=== PATIENT | male | born 1975 | race Caucasian/White ===

== ENCOUNTER 2023-02-10 11:47 | Emergency (ER) | payer BC, OTHER ==
[2023-02-10 12:11] LABS: BILIRUBIN,URINE NEGATIVE (NEGATIVE); GLUCOSE, URINE (UA) NEGATIVE (NEGATIVE); KETONES,URINE (UA) NEGATIVE (NEGATIVE); LEUKOCYTE ESTERASE, URINE NEGATIVE (NEGATIVE); NITRITE,URINE NEGATIVE (NEGATIVE); OCCULT BLOOD,URINE MODERATE (NEGATIVE); PROTEIN,URINE NEGATIVE (NEGATIVE); UROBILINOGEN,URINE 0.2 (NORMAL) E.U./dL (NORMAL)
[2023-02-10 12:12] LABS: CLARITY,URINE CLEAR (CLEAR)
[2023-02-10 12:18] LABS: BACTERIA,URINE Rare /HPF (None Seen); SQUAMOUS EPITHELIAL CELL,UR NONE SEEN (<= Few); WBC,URINE 0-3 /HPF (0-3)
--- NOTE | 2023-02-10 12:32 | CT Report ---
PROCEDURE: ABDOMEN/PELVIS WO INDICATIONS: R flank pain, h/o renal stone TECHNIQUE: Noncontrast 5 mm thick sections acquired from the diaphragms to the symphysis. 5 mm coronal and sagi ttal reformats were then performed. For radiation dose reduction, the following was used: automated exposure control, adjustment of mA and/or kV according to patient size. COMPARISON: None. FINDINGS: Image quality: Excellent. Lung bases and heart: Unremarkable. Liver: Unremarkable. Gallbladder and biliary tree: Unremarkable. No biliary dilation. Spleen: Unremarkable. Pancreas: Unremarkable. Adrenals: Unremarkable. Kidneys and ureters: Obstructing 5.5 mm stone in the distal right ureter (887 HU), resulting in moder ate upstream hydroureter. Homogeneous lesion with indeterminate attenuation in the right pararenal sp fredy measuring 4.0 x 3.8 cm (3/47). Punctate, nonobstructing left-sided stone. Bowel and peritoneum: No bowel distension. No pathologic free fluid. Diverticulosis without evidence of diverticulitis. Central mesenteric fat stranding without adenopathy; findings typically indicate a benign process in the absence of enlarged lymph nodes. Lymph nodes: No central or retroperitoneal adenopathy. Vessels: Unremarkable. PELVIS Reproductive organs: Unremarkable. Bladder: Unremarkable. Lymph nodes: Unremarkable. Bones: No aggressive osseous abnormality. Other: Fat within the inguinal canals. IMPRESSION: Obstructing 5.5 mm stone in the distal right ureter (887 HU), resulting in moderate upstream hydroure ter. Homogeneous lesion in the right pararenal space measuring 4.0 x 3.8 cm, possibly an exophytic renal c yst. Consider outpatient ultrasound for complete characterization. Reviewed by: Jose Antonio Astudillo on 02/10/2023 12:31 PM PDT Approved by: Jose Antonio Astudillo on 02/10/2023 12:31 PM PDT Station ID: [id number]
[2023-02-10 12:33] LABS: BASOPHILS % (AUTO) 0.4 %; EOSINOPHILS # (AUTO) 0.1 10^3/uL (0.0-0.7); EOSINOPHILS % (AUTO) 1.2 %; HCT - HEMATOCRIT 43.3 % (42.0-52.0); HGB - HEMOGLOBIN 14.2 g/dL (14.0-18.0); LYMPHOCYTES # (AUTO) 1.5 10^3/uL (1.5-3.5); LYMPHOCYTES % (AUTO) 22.3 %; MEAN CORPUSCULAR HEMOGLOBIN 28.2 pg (27.0-31.0); MEAN CORPUSCULAR HGB CONC 32.8 g/dL (32.0-36.0); MEAN CORPUSCULAR VOLUME 86.1 fL (80.0-94.0); MEAN PLATELET VOLUME 9.2 fL (7.4-11.4); MONOCYTES # (AUTO) 0.5 10^3/uL (0.0-1.0); NEUTROPHILS # (AUTO) 4.6 10^3/uL (1.5-6.6); NEUTROPHILS % (AUTO) 68.7 %; PLT - PLATELET COUNT 202 10^3/uL (130-450); RED BLOOD COUNT 5.03 10^6/uL (4.70-6.10); RED CELL DISTRIBUTION WIDTH 12.4 % (12.0-15.0); WHITE BLOOD COUNT 6.8 x10^3/uL (4.8-10.8)
[2023-02-10 12:46] LABS: ALBUMIN 4.2 g/dL (3.2-5.5); ALBUMIN/GLOBULIN RATIO 1.5 (1.0-2.2); BILIRUBIN,TOTAL 1.4 mg/dL (0.2-1.0); CALCIUM 9.4 mg/dL (8.5-10.3); CREATININE 1.9 mg/dL (0.6-1.2); POTASSIUM 4.3 mmol/L (3.5-5.0)
[2023-02-10] MEDS ORDERED: TAMSULOSIN 0.4 MG CAPSULE PO STA (13:01)
[2023-02-10] MEDS ORDERED: KETOROLAC 30 MG/ML VIAL IVP STA (13:03)
[2023-02-10] MEDS ORDERED: SODIUM CHLORIDE 0.9% 1,000 ML IV STA (13:03)
--- NOTE | 2023-02-10 13:10 | ED Physician Documentation ---
History of Present Illness - Stated complaint Stated Complaint: KIDNEY STONE - Chief complaint Chief Complaint: Abd Pain - Additonal information Additional information: 47-year-old male presents to the emergency department for evaluation of 5 days of right flank and low back pain. Has remote history of renal colic about 7 years ago. Has never been seen by urologist. Does not have primary care. He endorses some subjective fevers but no dysuria or frequency. Denies history of hypertension or diabetes Review of Systems Constitutional: reports: Fever Throat: reports: Reviewed and negative Cardiac: reports: Reviewed and negative Respiratory: reports: Reviewed and negative GI: reports: Abdominal Pain : reports: Reviewed and negative Skin: reports: Reviewed and negative PD PAST MEDICAL HISTORY - Present Medications Home Medications: Ambulatory Orders Medication Instructions Recorded Confirmed Ibuprofen 400 mg PO Q6HR PRN 02/10/23 02/10/23 Tamsulosin HCl [Flomax] 0.4 mg PO DAILY #30 cap 02/10/23 - Allergies Allergies/Adverse Reactions: Allergies Allergy/AdvReac Type Severity Reaction Status Date / Time codeine AdvReac Nausea Verified 02/10/23 13:22 PD ED PE NORMAL - General General: Alert and oriented X 3, No acute distress - HEENT HEENT: PERRL - Neck Neck: Supple, no meningeal sign, No adenopathy - Cardiac Cardiac: RRR, No murmur - Respiratory Respiratory: No respiratory distress, Clear bilaterally - Abdomen Abdomen: Normal bowel sounds, Soft. No: Non tender (Mild tenderness of the right flank and lower quadrant. No guarding or rebound. No CVA tenderness) - Derm Derm: Warm and dry - Extremities Extremities: No deformity - Neuro Neuro: Alert and oriented X 3 Eye Opening: Spontaneous Motor: Obeys Commands Verbal: Oriented GCS Score: 15 Results - Vitals Vitals: Vital Signs - 24 hr 02/10/23 02/10/23 11:52 13:31 Temperature 36.0 C L Heart Rate 73 67 Respiratory 18 16 Rate Blood Pressure 137/83 H 134/90 H O2 Saturation 99 99 Oxygen O2 Source Room air - Labs Labs: Laboratory Tests 02/10/23 02/10/23 02/10/23 12:00 12:28 12:28 WBC 6.8 RBC 5.03 Hgb 14.2 Hct 43.3 MCV 86.1 MCH 28.2 MCHC 32.8 RDW 12.4 Plt Count 202 MPV 9.2 Neut # (Auto) 4.6 Lymph # (Auto) 1.5 Bee # (Auto) 0.5 Eos # (Auto) 0.1 Baso # (Auto) 0.0 Absolute Nucleated RBC 0.00 Nucleated RBC % 0.0 Sodium 138 Potassium 4.3 Chloride 107 Carbon Dioxide 26 Anion Gap 5.0 L BUN 24 H Creatinine 1.9 H Estimated GFR (MDRD) 38 L Glucose 104 H Calcium 9.4 Total Bilirubin 1.4 H AST 19 ALT 22 Alkaline Phosphatase 63 Total Protein 7.0 Albumin 4.2 Globulin 2.8 Albumin/Globulin Ratio 1.5 Lipase 38 Urine Color YELLOW Urine Clarity CLEAR Urine pH 6.0 Ur Specific [place] 1.010 Urine Protein NEGATIVE Urine Glucose (UA) NEGATIVE Urine Ketones NEGATIVE Urine Occult Blood MODERATE H Urine Nitrite NEGATIVE Urine Bilirubin NEGATIVE Urine Urobilinogen 0.2 (NORMAL) Ur Leukocyte Esterase NEGATIVE Urine RBC 6-10 H Urine WBC 0-3 Ur Squamous Epith Cells NONE SEEN Urine Bacteria Rare Ur Microscopic Review INDICATED Urine Culture Comments NOT INDICATED - Rads (name of study) CT abd Relevant Findings:: Final report received (Obstructing 5.5 mm stone in the distal right ureter resulting in moderate upstream hydroureter. Homogenous lesion in the right pararenal space measuring 4 by by 3.8 cm possibly exophytic renal cyst. Consider outpatient ultrasound for complete characterization) PD Medical Decision Making - ED course Complexity details: reviewed results, re-evaluated patient, considered differential, d/w patient ED course: 47-year male presents emergency department for evaluation of 5 days right low back and right flank pain. No dysuria urgency or frequency. No hematuria. He has a remote history of renal colic treated 7 years ago. He never formally saw urology. Here in the emergency department his urinalysis is without findings of infection though blood is noted per my interpretation. CBC showed no worrisome leukocytosis or anemia. His electrolytes however do show some mild kidney injury. His BUN is 24 and creatinine of 1.9. This is essentially doubled from the 2014 labs that we have most recently for evaluation. A subsequent CT of the abdomen does show an obstructing 5.5 mm stone in the distal right ureter with moderate upstream hydroureter. Also an associated lesion in the pararenal space that may be an exophytic renal cyst. I discussed the CT imaging findings with the patient. He will ultimately require referral to urology. In order to assist with this I have contacted the walk-in clinic where he was seen earlier in the day and requested that they make a referral to urology. The provider noted that he is not associated with a primary provider and as such an appointment has been made for him to be seen next Monday to establish care. In the short-term the patient will be started on Flomax to aid in passage of the stone. He is advised that he needs to have an ultrasound completed for further characterization of this right renal lesion. We discussed the findings of acute kidney injury on CT labs today patient is advised hydration and to have labs repeated in 1 week's time to ensure stability. The usual emergent return precautions were discussed for worsening symptoms Departure - Departure Disposition: 01 Home, Self Care Clinical Impression: Hydroureter, Renal lesion, Acute kidney injury, Right ureteral calculus Condition: Stable Record reviewed to determine appropriate education?: Yes Prescriptions: Tamsulosin HCl [Flomax] 0.4 mg PO DAILY #30 cap Comments: Harvey you are referred to the emergency department for evaluation of pain in your right low back and abdomen. A CT scan has shown that you have a 5.5 mm stone in the distal right ureter. This is mildly obstructing and is causing some swelling of the ureter behind the stone. There was also findings of a right pararenal lesion that most likely represents a cyst. You are recommended to have an outpatient ultrasound of the right kidney for further evaluation of this. Your labs today showed some mild kidney disease. Your BUN and creatinine were elevated. We did give you a liter of IV fluids here in the emergency department. Over the weekend you are encouraged to stay well-hydrated. The color of your urine should be pale yellow. Because of this obstructing renal stone you will need to be referred to urology. I have spoken with Dr. Doan told the provider who saw you earlier in the day and you can expect a call from the walk-in clinic tomorrow. You will be scheduled an appointment next Monday with her primary provider who can make the referral for you to urology. They should also obtain repeat labs to ensure stability of your kidney function as well as order the outpatient renal ultrasound. In order to manage the kidney stone you are being started on a medication called Flomax. In theory this helps dilate the ureter allowing the stone to pass. I encourage you to stay well-hydrated while taking this medication. It can cause some slight dizziness so use cautiously when driving. Because of the mild kidney disease I would like you to avoid NSAID medications like Aleve or ibuprofen until you ensure that your kidney functions improving. Therefore I would like you to take Tylenol 500 mg 3-4 times a day for any discomfort. If any point you find that your symptoms are worsening, you develop severe pain have uncontrolled vomiting then please return immediately to the ER for second evaluation.
[2023-02-10 14:18] VITALS: BP 123/74
== END 2023-02-10 14:18 | disposition home or self-care (01) ==
LOC: ED 11:47
DX: N13.4 Hydroureter (principal); N28.9 Disorder of kidney and ureter, unspecified; N17.9 Acute kidney failure, unspecified; N20.1 Calculus of ureter
CPT/HCPCS: 36415; 74176; 80053; 81001; 83690; 85025; 96374; 99284; A9270; 81003; 87086

== ENCOUNTER 2023-03-23 19:19 | Outpatient (CLI) | payer OTHER ==
--- NOTE | 2023-03-24 16:16 | Ultrasound Report ---
PROCEDURE: Retroperitoneal INDICATIONS: RENAL CYST TECHNIQUE: Real-time scanning was performed of the retroperitoneal organs, with image documentation. COMPARISON: CT abdomen pelvis 02/10/2023. FINDINGS: Kidneys: Kidneys are normal in size. Right kidney measures 10 point cm long; left kidney measures 1 1.2 cm long. Right renal cortical thickness is 1.6 cm; left renal cortical thickness is 1.8 cm. No solid masses, hydronephrosis, or nephrolithiasis. The previously identified isodense focus in the ri t pararenal space is identified as a hypoechoic focus measuring 3.0 x 3.4 x 3.6 cm. It appears to b e separate from the kidney. There is minimal posterior acoustic enhancement. No vascularity. In addit ion, 5 mm echogenic focus is present within the left kidney corresponding to previous identified ston e. Bladder: Pre-void bladder volume is 122 mL. Post-void residual is 2 mL. Pre-void images demonstrat e no intraluminal masses or stones. On pre-void images, bilateral ureteral jets are noted with color Doppler interrogation. (Of note, ureteral jets may not be detectable in up to 25% of cases due to i nsufficient differences in specific gravity between ureteral and bladder urine). Miscellaneous: No free abdominal fluid. IMPRESSION: Hypoechoic focus corresponding to right pararenal density identified on CT. It appears to be separate from the right kidney and predominantly solid. It appears to be separate from the liver, kidney as w ell as adrenal gland. Etiology remains indeterminate and could represent malignant and nonmalignant e tiologies. Biopsy may be obtained as clinically indicated or potentially PET scan. Reviewed by: Kim Ley MD on 03/24/2023 4:15 PM PDT Approved by: Kim Ley MD on 03/24/2023 4:15 PM PDT Station ID: [id number]
== END 2023-03-23 19:20 | disposition home or self-care (01) ==
LOC: DI 19:19
PROVIDERS: ATTEND Emergency Medicine
DX: R19.09 Other intra-abdominal and pelvic swelling, mass and lump (principal); N20.0 Calculus of kidney

== ENCOUNTER 2023-04-07 07:42 | Outpatient (CLI) | payer OTHER ==
[~2023-04-07 07:42] MED LIST: GADOBUTROL 10 MMOL/10 ML VIAL ONE
[2023-04-07] MEDS ORDERED: GADOBUTROL 10 MMOL/10 ML VIAL IVP ONE (09:34)
--- NOTE | 2023-04-07 14:01 | MRI Report ---
PROCEDURE: ABDOMEN W/WO INDICATIONS: RENAL CYST CONTRAST: GADAVIST 9.5 ML TECHNIQUE: Coronal ultra fast SE, axial 2D spoiled GE in- and [id number]; axial breath-hold T2 fast SE. Dynam ic axial ultra fast GE during the administration of contrast; post-contrast coronal ultra fast GE or 2D spoiled GE with fat saturation from the hepatic dome to the iliac crests. Optional diffusion weig hted imaging and ADC may be performed. COMPARISON: CT 02/10/2023 and ultrasound 03/23/2023 FINDINGS: Image quality: Excellent. Lung bases and heart: Unremarkable. Liver: No solid or enhancing mass. Gallbladder and biliary tree: Normal gallbladder without stones or wall thickening. No biliary dilata tion. Spleen: Normal size. Pancreas: Normal. Adrenals: No adrenal nodule. Kidneys and ureters: In the right suprarenal space, separate from the kidney and adrenal gland, and t here is a homogeneous, well-circumscribed ovoid mass measuring 3.7 x 3.5 x 3.8 cm, isointense to musc le on T1 and mildly hyperintense on T2. There is no restricted diffusion, and minimal, questionably p eripheral enhancement postcontrast. Kidneys are otherwise normal without enhancing mass or hydronephr osis. Bowel and peritoneum: Stomach and visualized bowel loops are normal. No free fluid. Lymph nodes: There is subtle small bowel mesenteric congestion and several borderline ovoid mesenteri c lymph nodes, one of the largest measuring 6 mm in short axis. No retroperitoneal adenopathy or mass . Vessels: Normal caliber. No aneurysm. Bones: No aggressive osseous abnormality. Other: No significant ventral hernia. IMPRESSION: 1. 3.8 cm circumscribed, minimally enhancing right suprarenal mass in the retroperitoneum. Differenti al diagnosis includes an exophytic adrenal adenoma, pathologic lymph node, retroperitoneal duplicatio n cyst.. This remains indeterminant. Percutaneous biopsy may be helpful. 2. Borderline changes of mesenteric adenopathy, typically physiologic in the absence of other finding s, mildly concerning for the presence of lymphoma in the presence of an indeterminant retroperitoneal mass. Continued attention to this area is recommended. Reviewed by: Domi Thomas MD on 04/07/2023 1:00 PM JESSIKA Approved by: Domi Thomas MD on 04/07/2023 1:00 PM [place] Station ID: [id number]
--- NOTE | 2023-04-07 14:08 | MRI Report ---
PROCEDURE: PELVIS W/WO INDICATIONS: RENAL CYST CONTRAST: GADAVIST 9.5 ML TECHNIQUE: Coronal HASTE, axial 2D FLASH in- and [id number]; axial breath-hold T2 FSE; dynamic axial VIBE duri ng IV gadolinium administration; postgadolinium coronal VIBE or 2D FLASH with fat saturation from the lower abdomen to the lesser trochanters. COMPARISON: CT abdomen pelvis 02/10/2023 FINDINGS: Image quality: Excellent. Nodes and vessels: No pelvic adenopathy. The vasculature is normal caliber. Bowel and peritoneum: The visible lower abdominal bowel loops are normal. There is mild diverticulos is of sigmoid colon. No free pelvic fluid or fluid collections. Genitourinary: Distal ureters are nondistended. Urinary bladder, prostate gland, and seminal vesicles are within normal limits. Normal scrotal sac contents with trace physiologic fluid bilaterally.: No inguinal hernia. Bones and soft tissues: Normal marrow signal. No soft tissue abnormalities. IMPRESSION: 1. No adenopathy in the pelvis. 2. No suspicious pelvic mass. 3. Nondilated ureters. Reviewed by: Domi Thomas MD on 04/07/2023 1:06 PM JESSIKA Approved by: Domi Thomas MD on 04/07/2023 1:06 PM JESSIKA Station ID: [id number]
== END 2023-04-07 07:43 | disposition home or self-care (01) ==
LOC: DI 07:42
PROVIDERS: ATTEND Urology
DX: R19.00 Intra-abdominal and pelvic swelling, mass and lump, unspecified site (principal); R59.0 Localized enlarged lymph nodes
CPT/HCPCS: 72197; 74183; A9585